=== PATIENT | male | born 1940 | race Caucasian/White ===

== ENCOUNTER 2016-12-13 11:57 | Inpatient (IN) | payer MEDICARE, OTHER ==
[~2016-12-13] VITALS: Ht 172.7 cm; Wt 86.2 kg
[2016-12-13] MEDS ORDERED: HYDR25TA86 PO (12:24)
[2016-12-13] MEDS ORDERED: MAG355OR18 PO (12:24)
[2016-12-13] MEDS ORDERED: VALP250C PO (12:24)
[2016-12-13] MEDS ORDERED: ZOLP5TAB2 PO (12:24)
[2016-12-13] MEDS ORDERED: DOXA2TAB PO (12:24)
[2016-12-13] MEDS ORDERED: METF1000 PO (12:24)
[2016-12-13] MEDS ORDERED: NA P133E RC (12:24)
[2016-12-13] MEDS ORDERED: LORA-259 PO (12:24)
[2016-12-13] MEDS ORDERED: ATOR40TA PO (12:24)
[2016-12-13] MEDS ORDERED: DONE10TA11 PO (12:24)
[2016-12-13] MEDS ORDERED: BENA20TA78 PO (12:24)
[2016-12-13] MEDS ORDERED: ASPI81TA31 PO (12:24)
[2016-12-13] MEDS ORDERED: MAGN400O6 PO (12:24)
[2016-12-13] MEDS ORDERED: MULT1CAP47 PO (12:24)
[2016-12-13] MEDS ORDERED: CRAN425C6 PO (12:24)
[2016-12-13] MEDS ORDERED: QUET50TA PO (12:25)
[2016-12-13] MEDS ORDERED: FINA5TAB3 PO (12:25)
[2016-12-13] MEDS ORDERED: QUET25TA PO ×2 (12:25→17:33)
[2016-12-13] MEDS ORDERED: ACET-2154 PO (12:25)
[2016-12-13 13:12] LABS: BASOPHILS % (AUTO) 0.6 % (0.0-2.0); HEMATOCRIT 36.5 % (40-50); HEMOGLOBIN 11.8 G/DL (14.0-18.0); LYMPHOCYTES # (AUTO) 1.6 K/UL (0.8-4.8); LYMPHOCYTES % (AUTO) 31.7 % (20.5-51.5); MEAN CORPUSCULAR HEMOGLOBIN 30.2 UUG (27.0-31.0); MEAN CORPUSCULAR HGB CONC 32 g/dL (32.0-37.0); MEAN CORPUSCULAR VOLUME 93.1 FL (82.0-92.0); MONOCYTES # (AUTO) 0.3 K/UL (0.1-1.30); MONOCYTES % (AUTO) 6.1 % (0.0-11.0); NEUTROPHILS % (AUTO) 60.6 % (38.5-71.5); PLATELET COUNT (AUTO) 93 K/UL (150-450); RED BLOOD CELL COUNT(AUTO) 3.92 MIL/UL (4.7-6.1); WHITE BLOOD COUNT (AUTO) 4.9 K/UL (4.0-11.2)
--- NOTE | 2016-12-13 13:13 | NUR ---
pt deneis any cp or sob at this time. no sign of distress. translation from romansh provided by hailee tripathi.
[2016-12-13 13:27] LABS: ALANINE AMINOTRANSFERASE 25 U/L (16-63); ALKALINE PHOSPHATASE 59 U/L (50-136); ASPARTATE AMINOTRANSFERASE 20 U/L (15-37); BILIRUBIN,DIRECT 0.1 mg/dL (0.0-0.2); BILIRUBIN,TOTAL 0.2 mg/dL (0.2-1.0); CARBON DIOXIDE 27 mmol/L (21-32); CHLORIDE 108 mmol/L (98-107); CREATININE 0.9 mg/dL (0.6-1.3); GLUCOSE 117 mg/dL (74-106); POTASSIUM 4.6 mmol/L (3.5-5.1); TOTAL PROTEIN, SERUM 6.9 g/dL (6.4-8.2); UREA NITROGEN, BLOOD 23 mg/dL (7-18)
[2016-12-13 14:06] LABS: *BILIRUBIN,URIN NEGATIVE (NEGATIVE); *BLOOD, URINE NEGATIVE (NEGATIVE); *CLARITY,URINE CLEAR (CLEAR); *COLOR,URINE YELLOW (YELLOW); *KETONES,URINE NEGATIVE (NEGATIVE); *PROTEIN,URINE NEGATIVE (NEGATIVE); *UROBILINOGEN,URINE 0.2 E.U./dl (NORMAL); LEUKOCYTE ESTERASE ,URINE NEGATIVE (NEGATIVE); NITRITE, URINE NEGATIVE (NEGATIVE); UGLUCOSE NEGATIVE (NEGATIVE)
[2016-12-13 14:16] LABS: RBC,URINE 0-3 /HPF (0-3); WBC,URINE 0-3 /HPF (0-3)
[2016-12-13 14:17] LABS: BACTERIA,URINE NONE SEEN /HPF (NONE SEEN); SQUAMOUS EPITHELIAL CELL,UR FEW /HPF (NONE SEEN)
[2016-12-13 14:39] LABS: BAND % (MANUAL) 3 % (0-10); EOSINOPHILS % (MANUAL) 1 % (0-8); LYMPHOCYTES % (MANUAL) 32 % (20-40); MONOCYTES % (MANUAL) 6 % (2-10); NEUTROPHILS % (MANUAL) 58 % (42-75)
--- NOTE | 2016-12-13 15:48 | NUR ---
NOTE WENT TO CHECK ON PATIENT IV PULLED WAS OUT. PRESSURE DRESSING PLACED NO BLEEDING NOTED. PATIENT IN BED NOT IN ANY DISTRESS.
--- NOTE | 2016-12-13 15:59 | NUR ---
Pt. admitted to TELE , under care of Dr. KABA Belongs List completed
--- NOTE | 2016-12-13 16:00 | NUR ---
RECEIVED PATIENT BY SHANIA TO ROOM 206 WITH DX OF FALL PLACED INTO BED FIXED AND MADE COMFORTABLE PATIENT IS ALERT TO SELF BUT IS CONFUSED ABLE TO OBEY SIMPLE COMMANDS.ORIENTED TO ROOM AND FACILITY PROTOCOL VIA AN LEADER TIER.MADE COMFORTABLE
--- NOTE | 2016-12-13 16:10 | NUR ---
CALLED DR KABA TO VERIFY ADMISSION ORDERS SPOKE CARLTON REYES MD NOT AVAILABLE WILL PAGE HIM.
[2016-12-13 16:18] VITALS: BP 157/88
--- NOTE | 2016-12-13 16:36 | NUR ---
CALLED [facility] SPOKE WITH THE ASSOCIATE PROGRAMMER ANALYST AND SHE CONFIRMED THAT PATIENT RECEIVED THE FLU SHOT 09/2015 BUT THE PNEUMONIA SOT HE RECEIVED 10/16/14.UNABLE TO VERIFY DATE OF PREVIOUS BOWEL MOVEMENT STATED THAT PATIENT IS INDEPENDENT.
--- NOTE | 2016-12-13 17:04 | NUR ---
DR KABA RETURNED CALL WITH NEW ORDERS AND NOTED.
[2016-12-13] MEDS ORDERED: DEXTROSE 50% 50 ML DISP.SYRIN IV PRN (17:15)
[2016-12-13] MEDS ORDERED: DIVA125C PO (17:17)
[2016-12-13] MEDS ORDERED: BENA10TA2 PO (17:21)
[2016-12-13] MEDS ORDERED: FLEET ENEMA 133 ML BOTTLE RC PRN (17:45)
[2016-12-13] MEDS ORDERED: hydrALAZINE HCL 25 MG TABLET PO PRN (17:45)
[2016-12-13] MEDS ORDERED: ACETAMINOPHEN 325 MG TABLET PO PRN (17:45)
[2016-12-13] MEDS ORDERED: MAG HYDROX/AL HYDROX/SIMETH 30 ML LIQUID UDC PO PRN (17:45)
[2016-12-13] MEDS ORDERED: LORAZEPAM 1 MG TABLET PO PRN (17:45)
[2016-12-13] MEDS ORDERED: MAGNESIUM HYDROXIDE 30 ML LIQUID UDC PO PRN (17:45)
[2016-12-13] MEDS ORDERED: Medication Not On Formulary EA (Metformin Hcl (Glucophage) 1,000 MG) PO SCH (18:00)
--- NOTE | 2016-12-13 18:00 | NUR ---
RECEIVED PATIENT IN BED, AWAKE, VERBALLY RESPONSIVE, LIBYAN SPEAKING, FAMILY ABLE TO INTERPRET FOR THE PATIENT, NO SOB NO CHEST PAIN, RHYTHM SINUS RHYTHM , NO COMPLAIN OF PAIN AT THIS TIME. CONT 1; 1 SITTER FOR SAFETY, CONT TO MONITOR.
--- NOTE | 2016-12-13 18:00 | NUR ---
ATTEMPTED BUT UNABLE TO OBTAIN FAMILY HISTORY AT THIS TIME.
[2016-12-13] MEDS: METFORMIN HCL 500 MG TABLET PO SCH (18:08)
[2016-12-13 20:00] VITALS: BP_SYST 141; BP_SYST 173; BP_SYST 177; BP_DIAS 71; BP_DIAS 83; BP_DIAS 91
[2016-12-13] MEDS: DONEPEZIL 10 MG TABLET PO SCH (20:20)
[2016-12-13] MEDS: DIVALPROEX SPRINKLE 125 MG CAP.SPRINK PO SCH (20:20)
[2016-12-13] MEDS: ATORVASTATIN 40 MG TABLET PO SCH (20:20)
[2016-12-13] MEDS: DOXAZOSIN 2 MG TABLET PO SCH (20:21)
[2016-12-13] MEDS: QUETIAPINE FUMARATE 25 MG TABLET PO SCH (20:29)
[2016-12-13] MEDS: BLOOD SUGAR DIAGNOSTIC 1 EACH STRIP VI SCH (20:35)
[2016-12-13 20:40] VITALS: BP 150/85
[2016-12-13] MEDS: INSULIN REGULAR, HUMAN 300 UNIT/3 ML VIAL SQ PRN (20:40)
--- NOTE | 2016-12-13 20:40 | NUR ---
PATIENT BP WAS HIGH EARLIER, BUT NO ASYMPTOMATIC, NO COMPLAIN OF HEADACHE, NO DIZZINESS, NO NAUSEA, RECHECK BP, BP WENT DOWN AT THIS TIME, CONT TO MONITOR.
[2016-12-13] MEDS ORDERED: BLOOD SUGAR DIAGNOSTIC 1 EACH STRIP VI SCH (21:00)
[2016-12-13 21:31] VITALS: BP 173/91
[2016-12-14] VITALS (7 sets, daily range): BP systolic 113–150; BP diastolic 69–91
--- NOTE | 2016-12-14 05:16 | NUR ---
PATIENT SLEPT MOST OF THE NIGHT, NO SOB NO CHEST PAIN, RHYTHM IS SINUS RHYTHM, WITH EPISODES OF ANXIETY, MEDICATED FOR ANXIETY WITH EFFECTIVE RESULTS, NO S/S OF HYPO/HYPERGLYCEMIA NOTED, CONT 1;1 SITTER FOR SAFETY, CALL LIGHT WITHIN REACH.
[2016-12-14] MEDS: BLOOD SUGAR DIAGNOSTIC 1 EACH STRIP VI SCH ×4 (05:49→20:06)
[2016-12-14 06:48] LABS: THYROID STIMULATING HORMONE 4.447 mIU/mL (0.358-3.740)
[2016-12-14 06:58] LABS: ALANINE AMINOTRANSFERASE 23 U/L (16-63); ALKALINE PHOSPHATASE 54 U/L (50-136); ASPARTATE AMINOTRANSFERASE 17 U/L (15-37); BILIRUBIN,TOTAL 0.4 mg/dL (0.2-1.0); CARBON DIOXIDE 28 mmol/L (21-32); CHLORIDE 108 mmol/L (98-107); CHOLESTEROL 127 mg/dL (<200); CREATININE 0.9 mg/dL (0.6-1.3); GLUCOSE 127 mg/dL (74-106); HDL CHOLESTEROL 54 mg/dL (40-60); POTASSIUM 4.1 mmol/L (3.5-5.1); TOTAL PROTEIN, SERUM 6.4 g/dL (6.4-8.2); TRIGLYCERIDES 54 MG/DL (30-150); UREA NITROGEN, BLOOD 22 mg/dL (7-18)
[2016-12-14 07:05] LABS: BASOPHILS % (AUTO) 0.5 % (0.0-2.0); EOSINOPHILS % (AUTO) 0.9 % (0.0-7.0); HEMATOCRIT 34.6 % (36.7-47.1); HEMOGLOBIN 11.9 g/dL (12.5-16.3); LYMPHOCYTES # (AUTO) 1.8 K/uL (20.0-40.0); MEAN CORPUSCULAR HEMOGLOBIN 31.3 uug (23.8-33.4); MEAN CORPUSCULAR HGB CONC 34 g/dL (32.5-36.3); MEAN CORPUSCULAR VOLUME 91.3 fL (73.0-96.2); MONOCYTES # (AUTO) 0.4 K/uL (2.0-10.0); MONOCYTES % (AUTO) 7.5 % (0.0-11.0); NEUTROPHILS # (AUTO) 2.9 K/uL (1.8-8.9); NEUTROPHILS % (AUTO) 56.1 % (38.5-71.5); PLATELET COUNT (AUTO) 97 K/uL (152-348); RED BLOOD CELL COUNT(AUTO) 3.79 MIL/uL (4.06-5.63); WHITE BLOOD COUNT (AUTO) 5.1 K/uL (3.6-10.2)
--- NOTE | 2016-12-14 07:30 | NUR ---
RECEIVED PATIENT IN BED ASLLEP BUT OPENS EYES WHEN NAME IS CALLED BUT WILL PROMPTLY FALL ASLEEP S/P ATIVAN GIVEN AT 5AM THIS MORNING FOR AGITATION/RESTLESSNESS.REMAIN ON ONE ON ONE SITTER FOR SAFETY MADE COMFORTABLE AND WILL CONTINUE TO OBSERVE.
[2016-12-14] MEDS: ASPIRIN 81 MG TAB.CHEW PO SCH (08:15)
[2016-12-14] MEDS: BENAZEPRIL HCL 10 MG TABLET PO SCH (08:15)
[2016-12-14] MEDS: FINASTERIDE 5 MG TABLET PO SCH (08:15)
[2016-12-14] MEDS: METFORMIN HCL 500 MG TABLET PO SCH ×2 (08:16→17:07)
[2016-12-14] MEDS: DIVALPROEX SPRINKLE 125 MG CAP.SPRINK PO SCH ×4 (08:16→20:03)
[2016-12-14] MEDS: MULTIVIT, IRON, MIN NO. 8, FA TABLET PO SCH (08:16)
[2016-12-14] MEDS: QUETIAPINE FUMARATE 25 MG TABLET PO SCH ×4 (08:16→20:04)
[2016-12-14] MEDS ORDERED: MULTIVITAMINS W MINERALS PO SCH (09:00)
--- NOTE | 2016-12-14 09:30 | NUR ---
DR MACIAS HERE TO SEE PATIENT WITH NEW ORDERS AND NOTED.
[2016-12-14] MEDS: IV 1/2NS 1000 ML 1,000 ML IV PRN (11:20)
[2016-12-14] MEDS: INSULIN REGULAR, HUMAN 300 UNIT/3 ML VIAL SQ PRN ×3 (11:41→20:21)
[2016-12-14] MEDS: LORAZEPAM 1 MG TABLET PO PRN ×2 (14:45→21:58)
--- NOTE | 2016-12-14 14:48 | NUR ---
PATIENT IS AGITATED AND RESTLESS AND PULLING ON THE IV TUBBING GETTING AGGRESSIVE WITH THE SITTER UNABLE TO REDIRECT AND HIS ATIVAN IS ORDERED FOR Q12H AND NOT DUE TO BE GIVEN CALLED DR MACIAS AND NOTIFIED HIM WITH NEW ORDER TO CHANGE FREQUENCY TO Q6H AND NOTED.
--- NOTE | 2016-12-14 17:45 | NUR ---
ALERT FAMILY IS AT THE BEDSIDE MORE CALMER AT THIS TIME AND WILL CONTINUE TO OBSERVE.
--- NOTE | 2016-12-14 19:20 | NUR ---
SPOKE WITH PATIENTS WHO IS AT THE BEDSIDE RE FLU SHOT AND SHE STATED THAT PATIENT RECEIVED FLU SHOT FIRST WEEK OF NOVEMBER AND DOCUMENTED.
[2016-12-14] MEDS: ATORVASTATIN 40 MG TABLET PO SCH (20:04)
[2016-12-14] MEDS: DONEPEZIL 10 MG TABLET PO SCH (20:04)
[2016-12-14] MEDS: DOXAZOSIN 2 MG TABLET PO SCH (20:05)
--- NOTE | 2016-12-14 22:00 | NUR ---
PT AGITATED, PULLING IV, UNABLE TO REDIRECT. ADMINISTERED ATIVAN ORDERED. 1:1 SITTER PROVIDED FOR SAFETY. WILL CONTINUE TO MONITOR.
[2016-12-14] MEDS: ZOLPIDEM 5 MG TABLET PO PRN (23:01)
[2016-12-15 06:07] VITALS: BP_SYST 118; BP_SYST 130; BP_DIAS 71; BP_DIAS 80
--- NOTE | 2016-12-15 06:30 | NUR ---
PT SLEPT WELL, IN NO ACUTE DISTRESS. PT IS ON TELE SINUS RHYTHM. ACCUCHECKS ORDERED, NO S/S HYPO/HYPERGLYCEMIA NOTED. 1:1 SITTER PROVIDED FOR SAFETY, WILL CONTINUE TO MONITOR. Addendum: 12/15/16 at 0646 by BETHEL MENDIOLA RN ADD: PT IS CALM, NO S/S OF AGITATION.
[2016-12-15] MEDS: BLOOD SUGAR DIAGNOSTIC 1 EACH STRIP VI SCH ×4 (06:37→20:33)
--- NOTE | 2016-12-15 07:20 | NUR ---
Received report from night club manager nurse, patient in bed awake, no evidence of distress noted at this time. bed in low position, side rails up x2.
--- NOTE | 2016-12-15 08:10 | NUR ---
Patients anxiety and agitation is increasing, preparation to administer ativan to patient to help relive agitation.
[2016-12-15] MEDS: MULTIVIT, IRON, MIN NO. 8, FA TABLET PO SCH (08:20)
[2016-12-15] MEDS: FINASTERIDE 5 MG TABLET PO SCH (08:20)
[2016-12-15] MEDS: DIVALPROEX SPRINKLE 125 MG CAP.SPRINK PO SCH ×4 (08:20→20:23)
[2016-12-15] MEDS: METFORMIN HCL 500 MG TABLET PO SCH ×2 (08:20→17:00)
[2016-12-15] MEDS: ASPIRIN 81 MG TAB.CHEW PO SCH (08:21)
[2016-12-15] MEDS: QUETIAPINE FUMARATE 25 MG TABLET PO SCH ×4 (08:21→20:22)
[2016-12-15] MEDS: BENAZEPRIL HCL 10 MG TABLET PO SCH (08:25)
[2016-12-15] MEDS: LORAZEPAM 1 MG TABLET PO PRN ×2 (08:56→20:23)
[2016-12-15] MEDS: IV 1/2NS 1000 ML 1,000 ML IV PRN (11:04)
[2016-12-15 11:30] VITALS: BP 125/79
[2016-12-15 12:00] VITALS: BP 125/79
[2016-12-15] MEDS: INSULIN REGULAR, HUMAN 300 UNIT/3 ML VIAL SQ PRN ×2 (13:30→21:45)
[2016-12-15 15:44] VITALS: BP 114/75
--- NOTE | 2016-12-15 17:00 | NUR ---
Patient is attempting to leave the facility and is confused, mentioned that he needs to get on the bus and go home, work is over for the day. Patient is being combative when attempted to help him back to bed. Scratching and hitting staff. contacted Dr. Salamanca for orders as patient is refusing oral ativan.
--- NOTE | 2016-12-15 17:36 | NUR ---
Called Dr. Salamanca again as he didn't return call.
[2016-12-15] MEDS ORDERED: HALOPERIDOL LACTATE 5 MG/1 ML VIAL IM PRN (18:00)
--- NOTE | 2016-12-15 18:00 | NUR ---
Received orders from Dr. delgado for haldol IM injection.
[2016-12-15] MEDS: DONEPEZIL 10 MG TABLET PO SCH (20:23)
[2016-12-15] MEDS: ATORVASTATIN 40 MG TABLET PO SCH (20:23)
--- NOTE | 2016-12-15 20:30 | NUR ---
PT IS AGITATED, FREQUENTLY GOES OUT OF THE ROOM, UNCOOPERATIVE, NOT REDIRECTABLE. ADMINISTERED ATIVAN. 1:1 SITTER PROVIDED FOR SAFETY. WILL CONTINUE TO MONITOR.
[2016-12-15] MEDS: DOXAZOSIN 2 MG TABLET PO SCH (20:32)
[2016-12-15] MEDS: ZOLPIDEM 5 MG TABLET PO PRN (22:31)
[2016-12-16] MEDS: IV 1/2NS 1000 ML 1,000 ML IV PRN (03:06)
--- NOTE | 2016-12-16 06:30 | NUR ---
SLEPT WELL, IN NO ACUTE DISTRESS. PT IS ON TELE - SR WITH OCCASIONAL PVCS AND 3 SECS OF ATRIAL TACH. 1:1 SITTER PROVIDED FOR SAFETY, WILL CONTINUE TO MONITOR.
[2016-12-16] MEDS: BLOOD SUGAR DIAGNOSTIC 1 EACH STRIP VI SCH ×3 (06:41→16:30)
--- NOTE | 2016-12-16 07:10 | NUR ---
RECEIVED REPORT FROM STARCH DUMPER NURSE, PATIENT IN BED ASLEEP, NO EVIDENCE OF DISTRESS NOTED AT THIS TIME. BED IN LOW POSITION, SIDE RAILS UP X2, SITTER AT BEDSIDE.
[2016-12-16] MEDS ORDERED: DIVA125C PO (08:29)
[2016-12-16] MEDS ORDERED: LORA-259 PO (08:29)
--- NOTE | 2016-12-16 08:30 | NUR ---
PATIENTS BEHAVIOR HAS ESCALATED AND HE IS ATTEMPTING TO LEAVE THE FACILITY AND TRYING TO TAKE OUT HIS IV LINES. PREPARATION TO GIVE ATIVAN
[2016-12-16] MEDS: BENAZEPRIL HCL 10 MG TABLET PO SCH (08:47)
[2016-12-16] MEDS: ASPIRIN 81 MG TAB.CHEW PO SCH (08:47)
[2016-12-16] MEDS: LORAZEPAM 1 MG TABLET PO PRN ×2 (08:47→14:48)
[2016-12-16] MEDS: FINASTERIDE 5 MG TABLET PO SCH (08:48)
[2016-12-16] MEDS: MULTIVIT, IRON, MIN NO. 8, FA TABLET PO SCH (08:48)
[2016-12-16] MEDS: QUETIAPINE FUMARATE 25 MG TABLET PO SCH ×3 (08:48→16:35)
[2016-12-16] MEDS: METFORMIN HCL 500 MG TABLET PO SCH (08:48)
[2016-12-16] MEDS ORDERED: DIVALPROEX SPRINKLE 125 MG CAP.SPRINK PO SCH (09:00)
[2016-12-16] MEDS: VALPROIC ACID 250 MG/5 ML LIQUID UDC PO SCH ×3 (09:43→16:35)
[2016-12-16 11:00] VITALS: BP 107/77
[2016-12-16] MEDS: INSULIN REGULAR, HUMAN 300 UNIT/3 ML VIAL SQ PRN (12:29)
[2016-12-16 14:00] VITALS: BP 123/65
--- NOTE | 2016-12-16 14:45 | NUR ---
PATIENT HAS AGAIN STARTED HAVING SEVERE AGITATION AND ATTEMPTING TO LEAVE THE HOSPITAL TO GO HOME, HE HAS BEEN COMBATIVE AND ATTEMPTING TO STRIKE AT STAFF.
--- NOTE | 2016-12-16 17:50 | NUR ---
PATIENT HAS BEEN PICKED UP BY TRANSPORT COMPANY, IV LINE REMOVED, NO EVIDENCE OF DISTRESS NOTED AT THIS TIME. PATIENT HAS HAD HIS MEAL, AND TOOK HIS 5PM MEDICATIONS. ALL EDUCATION MATERIAL SENT IN A PACKAGE TO PATIENTS FAMILY WITH THE TRANSPORT AGENCY TO BE DELIVERED TO THE STAFF AT FACILITY.
== END 2016-12-16 17:55 | DRG 641 ==
LOC: ER 11:57 → MED 15:33 → TELE 15:40 → MED 12-16 10:58
PROVIDERS: ADMIT Internal Medicine; ATTEND Internal Medicine
DX: E86.9 Volume depletion, unspecified (principal); F20.9 Schizophrenia, unspecified; I71.2 Thoracic aortic aneurysm, without rupture; I95.2 Hypotension due to drugs; E11.9 Type 2 diabetes mellitus without complications; W19.XXXA Unspecified fall, initial encounter; R55 Syncope and collapse; I10 Essential (primary) hypertension; Z86.73 Personal history of transient ischemic attack (TIA), and cerebral infarction without residual deficits; Z87.891 Personal history of nicotine dependence; E78.5 Hyperlipidemia, unspecified; F03.90 Unspecified dementia, unspecified severity, without behavioral disturbance, psychotic disturbance, mood disturbance, and anxiety; G40.909 Epilepsy, unspecified, not intractable, without status epilepticus; Z91.81 History of falling; F99 Mental disorder, not otherwise specified; T46.4X5A Adverse effect of angiotensin-converting-enzyme inhibitors, initial encounter; Y92.129 Unspecified place in nursing home as the place of occurrence of the external cause; Y93.9 Activity, unspecified
CPT/HCPCS: 36415; 70030-TC; 70450; 71010; 72125; 80164; 84443; 85025; 85730; 93005; 93307; 93880; 97116; 97530; A4663; J1630; J1815; J3490; J7030

== ENCOUNTER 2017-08-08 18:29 | Inpatient (IN) | payer MEDICARE, OTHER ==
[~2017-08-08] VITALS: Ht 172.7 cm; Wt 93.4 kg
[~2017-08-08 18:29] MED LIST: ACET-2154 PO; ASPI81TA31 PO; ATOR40TA PO; CRAN425C6 PO; DIVA125C PO; DONE10TA11 PO; DOXA2TAB PO; FINA5TAB3 PO; HYDR25TA86 PO; LORA-259 PO; MAG355OR18 PO; MAGN400O6 PO; METF1000 PO; MULT1CAP47 PO; NA P133E RC; QUET25TA PO; ZOLP5TAB2 PO
[2017-08-08 19:02] LABS: BASOPHILS % (AUTO) 0.6 % (0.0-2.0); EOSINOPHILS % (AUTO) 0.6 % (0.0-7.0); HEMATOCRIT 33.1 % (36.7-47.1); HEMOGLOBIN 11.4 g/dL (12.5-16.3); LYMPHOCYTES # (AUTO) 1.3 K/uL (20.0-40.0); LYMPHOCYTES % (AUTO) 30.5 % (20.5-51.5); MEAN CORPUSCULAR HEMOGLOBIN 31.7 uug (23.8-33.4); MEAN CORPUSCULAR HGB CONC 34 g/dL (32.5-36.3); MEAN CORPUSCULAR VOLUME 92.1 fL (73.0-96.2); MONOCYTES # (AUTO) 0.3 K/uL (2.0-10.0); MONOCYTES % (AUTO) 6.3 % (0.0-11.0); NEUTROPHILS # (AUTO) 2.7 K/uL (1.8-8.9); PLATELET COUNT (AUTO) 85 K/uL (152-348); WHITE BLOOD COUNT (AUTO) 4.4 K/uL (3.6-10.2)
[2017-08-08 19:13] LABS: CARBON DIOXIDE 28 mmol/L (21-32); CHLORIDE 109 mmol/L (98-107); CREATININE 1.4 mg/dL (0.6-1.3); GLUCOSE 153 mg/dL (74-106); POTASSIUM 4.7 mmol/L (3.5-5.1); UREA NITROGEN, BLOOD 28 mg/dL (7-18)
[2017-08-08 19:17] LABS: ETHANOL < 3 MG/DL (0-0)
[2017-08-08 19:18] LABS: ALANINE AMINOTRANSFERASE 21 U/L (16-63); ALKALINE PHOSPHATASE 54 U/L (50-136); ASPARTATE AMINOTRANSFERASE 12 U/L (15-37); BILIRUBIN,DIRECT 0.1 mg/dL (0.0-0.2); BILIRUBIN,TOTAL 0.2 mg/dL (0.2-1.0); TOTAL PROTEIN, SERUM 6.6 g/dL (6.4-8.2)
[2017-08-08 19:26] LABS: THYROID STIMULATING HORMONE 3.063 mIU/mL (0.358-3.740)
--- NOTE | 2017-08-08 20:35 | NUR ---
GAVE REPORT TO GWYN AARON
[2017-08-08 20:45] VITALS: BP 134/75
--- NOTE | 2017-08-08 20:45 | NUR ---
Pt. admitted to MHU , under care of Dr. FALCON/SESAR Hopper List completed. MRSA done
--- NOTE | 2017-08-08 21:00 | NUR ---
Admission Note: 76 y.o. (serbian speaking) male placed on 5150 for DTO and GD. Jose Drake RN used as splitter machine. Pt brought to [facility] from [facility] and medically cleared in ER. Pt brought to MHU from ER via [facility] accompanied by ER staff. VS stable on admission. According to the hold, Pt has been striking out at staff as they attempt to redirect his aggressive and exit-seeking behavior. Pt last hospitalized at [facility] in November 2016 for a similar episode. Pt calms only when family is present. RN concurs with Hold. Pt given Patient Rights Handbook and oriented to the unit and his room. Unit rules and expectations explained. A+Ox1 to self only. Pt disoriented, confused, disorganized and forgetful. Pt slow to respond and has blunted/restricted affect. Pt gives irrelevant and non-sensical answers to questions. Pt became aggressive and agitated when asked to remove his necklace to put into the valuables locker for safety reasons. Security was called and had to intervene to remove the necklace. Pt eventually calmed. Dr Carvajal and Dr Salamanca notified of admission, orders received, meds reconciled. VS stable, denies pain, no acute physical distress.
[2017-08-08] MEDS ORDERED: MAGNESIUM HYDROXIDE 30 ML LIQUID UDC PO PRN (21:15)
[2017-08-08] MEDS ORDERED: MAG HYDROX/AL HYDROX/SIMETH 30 ML LIQUID UDC PO PRN (21:15)
[2017-08-09] MEDS ORDERED: FLEET ENEMA 133 ML BOTTLE RC PRN (07:15)
[2017-08-09] MEDS ORDERED: hydrALAZINE HCL 25 MG TABLET PO PRN (07:15)
[2017-08-09 07:30] VITALS: BP 157/86
[2017-08-09] MEDS ORDERED: Medication Not On Formulary EA (Cranberry Extract (Cranberry) 425 MG) PO SCH (09:00)
[2017-08-09] MEDS: METFORMIN HCL 500 MG TABLET PO SCH ×2 (09:55→18:00)
[2017-08-09] MEDS: MULTIVIT, IRON, MIN NO. 8, FA TABLET PO SCH (09:55)
[2017-08-09] MEDS: FINASTERIDE 5 MG TABLET PO SCH (09:55)
[2017-08-09] MEDS: LORAZEPAM 1 MG TABLET PO PRN ×2 (10:08→16:54)
--- NOTE | 2017-08-09 11:38 | NUR ---
Firearms Report: Creative Developer completed and submitted [employer] Firearms Report on 08/09/17 for 5150 Danger to Others and Gravely Disabled certification
[2017-08-09] MEDS: ASPIRIN 81 MG TAB.CHEW PO SCH (12:56)
--- NOTE | 2017-08-09 15:48 | NUR ---
GPS: Nursing Notes: Thought Disorder: Patient is awake and responding to his name, impaired judgment, slightly unsteady gait, on fall precautions, refusing to use a fww, AWOL risk, constantly trying to leave unit, setting off - fire alarm door by trying to leave unit, disoriented, A/Ox1, "I want to go home... My is waiting for me..", redirected and reoriented during shift, but continue to be forgetful, confused, believes that he needs to go home, unkempt appearance, labile, unpredictable behavior at times, unable to formulate a plan for self care, continue with treatment plan.
[2017-08-09 16:31] VITALS: BP 158/91
[2017-08-09] MEDS: QUETIAPINE FUMARATE 25 MG TABLET PO SCH ×2 (18:23→20:03)
[2017-08-09 19:54] VITALS: BP 106/67
[2017-08-09] MEDS: ATORVASTATIN 40 MG TABLET PO SCH (20:03)
[2017-08-09] MEDS: DIVALPROEX 250 MG TABLET.DR PO SCH (20:03)
[2017-08-09] MEDS: DOXAZOSIN 2 MG TABLET PO SCH (20:08)
[2017-08-09] MEDS: TEMAZEPAM 7.5 MG CAPSULE PO PRN (22:03)
[2017-08-10] MEDS: LORAZEPAM 1 MG TABLET PO PRN ×3 (02:36→18:27)
--- NOTE | 2017-08-10 02:37 | NUR ---
GPS: Pt.is awake at this time. Anxious,confused and disoriented. Re-directed and re-assured frequently. Denies the need to use the toilet at this time. Ativan 1mg given PO.Will monitor effectiveness. Fall precautions observed. Quiet environment provided to facilitate sleep.
[2017-08-10 04:54] LABS: *CREATININE,URINE 58.6 mg/dL (30-125)
[2017-08-10 08:00] VITALS: BP 162/90
[2017-08-10 08:09] LABS: BASOPHILS % (AUTO) 0.5 % (0.0-2.0); EOSINOPHILS # (AUTO) 0.1 K/uL (0.0-0.7); EOSINOPHILS % (AUTO) 1.6 % (0.0-7.0); HEMATOCRIT 36.3 % (36.7-47.1); HEMOGLOBIN 12.4 g/dL (12.5-16.3); LYMPHOCYTES # (AUTO) 1.5 K/uL (20.0-40.0); LYMPHOCYTES % (AUTO) 29.5 % (20.5-51.5); MEAN CORPUSCULAR HEMOGLOBIN 31.2 uug (23.8-33.4); MEAN CORPUSCULAR HGB CONC 34 g/dL (32.5-36.3); MEAN CORPUSCULAR VOLUME 91.4 fL (73.0-96.2); MONOCYTES # (AUTO) 0.4 K/uL (2.0-10.0); MONOCYTES % (AUTO) 8.3 % (0.0-11.0); NEUTROPHILS # (AUTO) 3.1 K/uL (1.8-8.9); NEUTROPHILS % (AUTO) 60.1 % (38.5-71.5); PLATELET COUNT (AUTO) 93 K/uL (152-348); RED BLOOD CELL COUNT(AUTO) 3.97 MIL/uL (4.06-5.63); WHITE BLOOD COUNT (AUTO) 5.2 K/uL (3.6-10.2)
[2017-08-10 08:27] LABS: ALANINE AMINOTRANSFERASE 17 U/L (16-63); ALKALINE PHOSPHATASE 59 U/L (50-136); ASPARTATE AMINOTRANSFERASE 12 U/L (15-37); BILIRUBIN,TOTAL 0.5 mg/dL (0.2-1.0); CARBON DIOXIDE 29 mmol/L (21-32); CHLORIDE 107 mmol/L (98-107); CREATINE KINASE, TOTAL 77 U/L (39-308); CREATININE 0.9 mg/dL (0.6-1.3); GLUCOSE 138 mg/dL (74-106); LACTATE DEHYDROGENASE 165 U/L (85-227); MAGNESIUM 1.7 mg/dL (1.8-2.4); PHOSPHOROUS 2.5 mg/dL (2.5-4.9); POTASSIUM 3.9 mmol/L (3.5-5.1); TOTAL PROTEIN, SERUM 6.9 g/dL (6.4-8.2); UREA NITROGEN, BLOOD 22 mg/dL (7-18)
[2017-08-10 08:33] LABS: IRON, SERUM 63 ug/dL (50-175)
[2017-08-10 08:38] LABS: THYROID STIMULATING HORMONE 4.393 mIU/mL (0.358-3.740)
[2017-08-10] MEDS: ASPIRIN 81 MG TAB.CHEW PO SCH (08:38)
[2017-08-10] MEDS: DIVALPROEX 250 MG TABLET.DR PO SCH ×4 (08:38→20:35)
[2017-08-10] MEDS: MULTIVIT, IRON, MIN NO. 8, FA TABLET PO SCH (08:38)
[2017-08-10] MEDS: FINASTERIDE 5 MG TABLET PO SCH (08:38)
[2017-08-10] MEDS: METFORMIN HCL 500 MG TABLET PO SCH ×2 (08:38→17:06)
[2017-08-10] MEDS: QUETIAPINE FUMARATE 25 MG TABLET PO SCH ×4 (08:38→20:35)
[2017-08-10 09:12] LABS: FERRITIN 63 ng/mL (26-388); URIC ACID 7.2 mg/dL (3.5-7.2)
[2017-08-10] MEDS: ACETAMINOPHEN 325 MG TABLET PO PRN (12:12)
[2017-08-10] MEDS ORDERED: MAGNESIUM OXIDE 400 MG TABLET PO ONE (13:15)
[2017-08-10 16:00] VITALS: BP 147/81
[2017-08-10] MEDS ORDERED: Z GUARD REMEDY PASTE 57 GM TUBE TOP PRN (16:45)
[2017-08-10 18:27] VITALS: BP 139/69
[2017-08-10 20:21] VITALS: BP 147/70
[2017-08-10] MEDS: DOXAZOSIN 2 MG TABLET PO SCH (20:35)
[2017-08-10] MEDS: ATORVASTATIN 40 MG TABLET PO SCH (20:35)
[2017-08-10] MEDS: Z GUARD REMEDY PASTE 57 GM TUBE TOP SCH (20:36)
[2017-08-11] MEDS: LORAZEPAM 1 MG TABLET PO PRN (03:42)
--- NOTE | 2017-08-11 03:42 | NUR ---
GPS: Pt.is awake,anxious and restless at this time. Unable to be re-directed by staff. Pt.keeps trying to get up from bed. Denies the need to go to the toilet when asked. Diaper is dry at this time. Ativan 1mg given PO with very little water as possible(needs to be NPO). Will monitor effectiveness. Denied pain when asked. Sitter at bedside.
[2017-08-11] MEDS: Z GUARD REMEDY PASTE 57 GM TUBE TOP PRN (03:48)
[2017-08-11 07:07] LABS: HEPATITIS B SURFACE AG Negative (Negative)
[2017-08-11 07:30] VITALS: BP 136/73
[2017-08-11] MEDS: ASPIRIN 81 MG TAB.CHEW PO SCH (08:41)
[2017-08-11] MEDS: DIVALPROEX 250 MG TABLET.DR PO SCH ×2 (08:41→13:28)
[2017-08-11] MEDS: MULTIVIT, IRON, MIN NO. 8, FA TABLET PO SCH (08:41)
[2017-08-11] MEDS: QUETIAPINE FUMARATE 25 MG TABLET PO SCH ×4 (08:42→20:28)
[2017-08-11] MEDS: METFORMIN HCL 500 MG TABLET PO SCH ×2 (08:42→17:29)
[2017-08-11] MEDS: FINASTERIDE 5 MG TABLET PO SCH (08:42)
[2017-08-11] MEDS: Z GUARD REMEDY PASTE 57 GM TUBE TOP SCH ×2 (09:04→20:30)
[2017-08-11 11:06] LABS: A/G RATIO 1.3 (0.7-1.7); ALBUMIN 3.6 g/dL (2.9-4.4); ALPHA-1-GLOBULIN 0.2 g/dL (0.0-0.4); ALPHA-2-GLOBULIN 0.6 g/dL (0.4-1.0); BETA GLOBULIN 0.9 g/dL (0.7-1.3); GLOBULIN, TOTAL 2.7 g/dL (2.2-3.9); M-SPIKE Not Observed g/dL (Not Observed)
[2017-08-11] MEDS ORDERED: DIVALPROEX SPRINKLE 125 MG CAP.SPRINK PO SCH (13:00)
[2017-08-11 16:28] VITALS: BP 141/71
[2017-08-11] MEDS: DIVALPROEX SPRINKLE 125 MG CAP.SPRINK PO SCH ×2 (17:23→20:28)
[2017-08-11] MEDS: ATORVASTATIN 40 MG TABLET PO SCH (20:27)
[2017-08-11] MEDS: DOXAZOSIN 2 MG TABLET PO SCH (20:28)
[2017-08-11 21:28] VITALS: BP 124/72
--- NOTE | 2017-08-12 06:54 | NUR ---
GPS: REMAIN CALM AND COOPERATIVE WITH MEDICATION AND CARE. SHOWERED THIS MORNING. ASSISTED WITH ADL'S DUE TO PATIENT IS INCONTINENT. TURN Q 2 HRS FOR SKIN SAFETY. REMAIN ON 1:1 SITTER @ BEDSIDE FOR SAFETY. SLEPT 7:15 HRS THROUGH THE NIGHT. CONTINUE PLAN OF CARE.
[2017-08-12 07:30] VITALS: BP 115/68
--- NOTE | 2017-08-12 07:46 | NUR ---
REPORT RECEIVED FROM SAM CHRISTOPHER.
[2017-08-12] MEDS: METFORMIN HCL 500 MG TABLET PO SCH ×2 (08:16→17:07)
[2017-08-12] MEDS: FINASTERIDE 5 MG TABLET PO SCH (08:16)
[2017-08-12] MEDS: DIVALPROEX SPRINKLE 125 MG CAP.SPRINK PO SCH ×5 (08:17→23:58)
[2017-08-12] MEDS: QUETIAPINE FUMARATE 25 MG TABLET PO SCH ×5 (08:17→23:58)
[2017-08-12] MEDS: ASPIRIN 81 MG TAB.CHEW PO SCH (08:17)
[2017-08-12] MEDS: MULTIVIT, IRON, MIN NO. 8, FA TABLET PO SCH (08:17)
[2017-08-12] MEDS: Z GUARD REMEDY PASTE 57 GM TUBE TOP SCH ×2 (08:18→22:26)
--- NOTE | 2017-08-12 08:32 | NUR ---
PATIENT IN ROOM WITH SITTER. PATIENT HAS BEEN IRRITATED THIS MORNING. GIVEN MORNING MEDICATION CRUSHED. PATIENT COMPLIANT WITH MEDS. ASKED PATIENT IF HE WANTED TO WATCH TV IN THE DAY ROOM; HE SAID YES. PATIENT IS ALBANIAN SPEAKING ONLY ASKED THERAPIST IF ACOMODATION CAN BE POSSIBLE.
--- NOTE | 2017-08-12 12:20 | NUR ---
PATIENT HAS VISITORS. PATIENT SLEEPING AT THIS TIME. SAVE LUNCH TRAY FOR THE PATIENT
[2017-08-12] MEDS: LORAZEPAM 1 MG TABLET PO PRN (14:15)
[2017-08-12] MEDS: ACETAMINOPHEN 325 MG TABLET PO PRN (14:15)
--- NOTE | 2017-08-12 14:27 | NUR ---
PATIENT WAS BECOMING COMBATIVE. PATIENT WANTING TO GET OUT OF BED, FORGETS, DOES NOT FOLLOW, HIGH RISK FOR FALL. SAT PATIENT UP TO GERIATRIC CHAIR. TAKEN PATIENT TO DAY ROOM TO WATCH TV. PATIENT GIVEN PRN ATIVAN.
[2017-08-12 15:47] VITALS: BP 102/54
--- NOTE | 2017-08-12 16:28 | NUR ---
PATIENT HAS INCREASED CONFUSION. TRYING TO GET OUT OF BED. BEING COMBATIVE AND THEN CLOSING HIS EYES A DOZING OFF TO SLEEP. PATIENT VERY WEAK- HIGH RISK OF FALL
[2017-08-12 20:36] VITALS: BP 130/58
[2017-08-12] MEDS: ATORVASTATIN 40 MG TABLET PO SCH (21:00)
[2017-08-12] MEDS: DOXAZOSIN 2 MG TABLET PO SCH (21:00)
--- NOTE | 2017-08-12 22:25 | NUR ---
GPS: Pt.still sound asleep in bed at this time since shift change. Unable to give bedtime meds.at this time. VSS. In no acute resp.distress noted. Sitter at bedside for safety. Repositioned Q2 hrs and prn.
--- NOTE | 2017-08-13 | NUR ---
GPS: Pt.now awake. Psych meds.administered at this time. Encouraged to reposition self prn. No c/o pain verbalized. Diaper dry at this time.
--- NOTE | 2017-08-13 02:05 | NUR ---
GPS: Assisted pt.to the toilet at this time for elimination purposes. Noted pt.with a skin breakdown around sacral/coccyx area. Pt.is starting to get agitated at this time and rushing to get back to bed and go back to sleep. Staff unable to fully assess skin at this time. Pt.uncooperative at this time. Refused to have skin assessed.Confused,disoriented with poor insight. Will further assess skin in the morning. Pt.kept on his sides at this time.
--- NOTE | 2017-08-13 06:00 | NUR ---
GPS: Upon further assessment at this time,pt.with excoriation on sacral area. No s/s of infection noted. Observed pt.to be scratching area vigorously. Denied feeling itchy when asked. Pt.is confused,disoriented . Assisted in repositioning self prn. Wound consult orders received. Endorsed.
[2017-08-13 07:29] LABS: BASOPHILS % (AUTO) 0.2 % (0.0-2.0); EOSINOPHILS % (AUTO) 0.6 % (0.0-7.0); HEMATOCRIT 34.2 % (36.7-47.1); HEMOGLOBIN 11.8 g/dL (12.5-16.3); LYMPHOCYTES # (AUTO) 1.1 K/uL (20.0-40.0); LYMPHOCYTES % (AUTO) 13.8 % (20.5-51.5); MEAN CORPUSCULAR HEMOGLOBIN 31.6 uug (23.8-33.4); MEAN CORPUSCULAR HGB CONC 35 g/dL (32.5-36.3); MEAN CORPUSCULAR VOLUME 91.5 fL (73.0-96.2); MONOCYTES # (AUTO) 0.7 K/uL (2.0-10.0); MONOCYTES % (AUTO) 8.5 % (0.0-11.0); NEUTROPHILS # (AUTO) 6.2 K/uL (1.8-8.9); NEUTROPHILS % (AUTO) 76.9 % (38.5-71.5); PLATELET COUNT (AUTO) 103 K/uL (152-348); RED BLOOD CELL COUNT(AUTO) 3.73 MIL/uL (4.06-5.63)
[2017-08-13 07:30] VITALS: BP 124/63
[2017-08-13] MEDS: METFORMIN HCL 500 MG TABLET PO SCH ×2 (08:30→17:48)
[2017-08-13] MEDS: QUETIAPINE FUMARATE 25 MG TABLET PO SCH ×4 (08:31→20:06)
[2017-08-13] MEDS: MULTIVIT, IRON, MIN NO. 8, FA TABLET PO SCH (08:32)
[2017-08-13] MEDS: ASPIRIN 81 MG TAB.CHEW PO SCH (08:32)
[2017-08-13] MEDS: FINASTERIDE 5 MG TABLET PO SCH (08:33)
[2017-08-13] MEDS: DIVALPROEX SPRINKLE 125 MG CAP.SPRINK PO SCH ×4 (08:33→20:06)
[2017-08-13] MEDS: NEOMY/BACITRAC/POLYMI OINT 28.35 GM TUBE TOP SCH (08:35)
[2017-08-13] MEDS: Z GUARD REMEDY PASTE 57 GM TUBE TOP PRN (08:36)
[2017-08-13] MEDS: Z GUARD REMEDY PASTE 57 GM TUBE TOP SCH ×2 (09:00→20:31)
--- NOTE | 2017-08-13 09:47 | NUR ---
PRN Z guard given instead of the scheduled Z-guard
[2017-08-13] MEDS: LORAZEPAM 1 MG TABLET PO PRN (14:14)
[2017-08-13 15:36] VITALS: BP 121/57
--- NOTE | 2017-08-13 18:58 | NUR ---
Pt was noted to be active during the day and walking with his walker assisted and guided by sitter. Family was seen visiting. expressed concerns about bed hold for [facility]. Charge nurse informed and will be endorsed to director of casework on Tuesday. was concern about leg abrasion explained the situation and understands, information was obtained by charge nurse.
[2017-08-13 20:00] VITALS: BP 125/65
[2017-08-13] MEDS: DOXAZOSIN 2 MG TABLET PO SCH (20:06)
[2017-08-13] MEDS: ATORVASTATIN 40 MG TABLET PO SCH (20:06)
[2017-08-14 07:30] VITALS: BP_SYST 111; BP_SYST 142; BP_DIAS 65; BP_DIAS 70
[2017-08-14] MEDS: Z GUARD REMEDY PASTE 57 GM TUBE TOP SCH ×2 (09:00→20:11)
[2017-08-14] MEDS: NEOMY/BACITRAC/POLYMI OINT 28.35 GM TUBE TOP SCH (09:00)
[2017-08-14] MEDS: METFORMIN HCL 500 MG TABLET PO SCH ×2 (09:53→17:49)
[2017-08-14] MEDS: DIVALPROEX SPRINKLE 125 MG CAP.SPRINK PO SCH ×4 (09:53→20:10)
[2017-08-14] MEDS: ASPIRIN 81 MG TAB.CHEW PO SCH (09:54)
[2017-08-14] MEDS: FINASTERIDE 5 MG TABLET PO SCH (09:54)
[2017-08-14] MEDS: QUETIAPINE FUMARATE 25 MG TABLET PO SCH ×4 (09:54→20:09)
[2017-08-14] MEDS: MULTIVIT, IRON, MIN NO. 8, FA TABLET PO SCH (09:54)
[2017-08-14] MEDS: Z GUARD REMEDY PASTE 57 GM TUBE TOP PRN (10:03)
--- NOTE | 2017-08-14 11:45 | NUR ---
patient found down on floor o.t noted event , no bruising or cuts noted from event vital sign b/p 141/67 hr 95 . patient returned to madlayn chair with assist 1.1 sitter continued as ordered continued to provide safety and 1;1
[2017-08-14 15:37] VITALS: BP 139/90
--- NOTE | 2017-08-14 18:31 | NUR ---
patient has not c/o pain or discomfort since sliding too floor this am , up in day room and in room with family at visiting hour , patient still confused and disoriented 1;1 sitter at bedside
[2017-08-14] MEDS: ACETAMINOPHEN 325 MG TABLET PO PRN (18:51)
[2017-08-14 20:00] VITALS: BP 134/70
[2017-08-14] MEDS: ATORVASTATIN 40 MG TABLET PO SCH (20:11)
[2017-08-14] MEDS: DOXAZOSIN 2 MG TABLET PO SCH (20:11)
--- NOTE | 2017-08-15 06:29 | NUR ---
GPS: REMAIN CALM AND COOPERATIVE WITH MEDICATION AND CARE. SHOWERED THIS MORNING. ASSISTED WITH ADL'S DUE TO PATIENT IS INCONTINENT. TURN Q 2 HRS FOR SKIN SAFETY. REMAIN ON 1:1 SITTER @ BEDSIDE FOR SAFETY. SLEPT 6:45 HRS THROUGH THE NIGHT. CONTINUE PLAN OF CARE.
[2017-08-15 07:30] VITALS: BP 133/60
[2017-08-15] MEDS: MULTIVIT, IRON, MIN NO. 8, FA TABLET PO SCH (08:49)
[2017-08-15] MEDS: METFORMIN HCL 500 MG TABLET PO SCH ×2 (08:49→17:16)
[2017-08-15] MEDS: ASPIRIN 81 MG TAB.CHEW PO SCH (08:49)
[2017-08-15] MEDS: FINASTERIDE 5 MG TABLET PO SCH (08:50)
[2017-08-15] MEDS: DIVALPROEX SPRINKLE 125 MG CAP.SPRINK PO SCH ×4 (08:50→20:10)
[2017-08-15] MEDS: Z GUARD REMEDY PASTE 57 GM TUBE TOP SCH ×2 (08:50→20:12)
[2017-08-15] MEDS: QUETIAPINE FUMARATE 25 MG TABLET PO SCH ×4 (08:50→20:11)
[2017-08-15] MEDS: NEOMY/BACITRAC/POLYMI OINT 28.35 GM TUBE TOP SCH (09:01)
[2017-08-15] MEDS: ACETAMINOPHEN 325 MG TABLET PO PRN ×2 (09:58→20:01)
[2017-08-15 16:23] VITALS: BP 136/83
[2017-08-15 19:45] VITALS: BP 153/79
[2017-08-15] MEDS: LORAZEPAM 1 MG TABLET PO PRN (20:00)
[2017-08-15] MEDS: ATORVASTATIN 40 MG TABLET PO SCH (20:10)
[2017-08-15] MEDS: DOXAZOSIN 2 MG TABLET PO SCH (20:11)
[2017-08-16] MEDS: TEMAZEPAM 7.5 MG CAPSULE PO PRN (01:37)
[2017-08-16] MEDS: Z GUARD REMEDY PASTE 57 GM TUBE TOP PRN (01:44)
--- NOTE | 2017-08-16 07:00 | NUR ---
GPS: Pt. starting to get agitated and combative during care now. Re-directed by staff. Explained importance of having his diaper changed. Pt.is confused,disoriented with poor insight to present situation. 1:1 sitter at bedside for safety. Will monitor for further escalation of behavior. Endorsed to incoming nurse.
[2017-08-16] MEDS: LORAZEPAM 1 MG TABLET PO PRN (07:56)
[2017-08-16] MEDS: ASPIRIN 81 MG TAB.CHEW PO SCH (08:48)
[2017-08-16] MEDS: MULTIVIT, IRON, MIN NO. 8, FA TABLET PO SCH (08:48)
[2017-08-16] MEDS: METFORMIN HCL 500 MG TABLET PO SCH ×2 (08:48→17:27)
[2017-08-16] MEDS: Z GUARD REMEDY PASTE 57 GM TUBE TOP SCH ×2 (08:49→22:04)
[2017-08-16] MEDS: DIVALPROEX SPRINKLE 125 MG CAP.SPRINK PO SCH ×4 (08:49→21:38)
[2017-08-16] MEDS: QUETIAPINE FUMARATE 25 MG TABLET PO SCH ×4 (08:49→21:37)
[2017-08-16] MEDS: FINASTERIDE 5 MG TABLET PO SCH (08:49)
[2017-08-16] MEDS: NEOMY/BACITRAC/POLYMI OINT 28.35 GM TUBE TOP SCH (08:50)
[2017-08-16 11:12] VITALS: BP 127/69
--- NOTE | 2017-08-16 11:50 | NUR ---
GPS/RN- Sitter Patient continues to anxious, restless confused and disorganized unsteady gait. assisted with adls, attempts to ambulate without regard for own safety. fall risk, recent fall. continue sitter 1:1
--- NOTE | 2017-08-16 12:31 | NUR ---
WOUND CARE CONSULT: PT PRESENTS WITH INCONTINENCE ASSOCIATED SKIN DAMAGE TO GLUTEAL CREASE AREA AND RT LATERAL LOWER LEG WOUND. RECOMMENDATIONS MADE FOR WOUND CARE AND SKIN PROTECTION. RECOMMEND SURGICAL CONSULT FOR LEG WOUND. DISCUSSED ALL RECOMMENDATIONS WITH NURSING STAFF. WILL SEE PRN. CHAIDEZ AT BEDSIDE. PT INCONTINENT, UNCOOPERATIVE, AGITATED AND COMBATIVE AT TIMES. IN AGREEMENT WITH PLAN OF CARE. Addendum: 08/16/17 at 1235 by ELIZABETH FLORES RN Amended: Links added. Addendum: 08/16/17 at 1245 by ELIZABETH FLORES RN RT DORSALIS PEDIS AND POSTERIOR TIBIAL PULSES PALPABLE. EDEMA NOTED. LEG ELEVATED ON PILLOW.
[2017-08-16 16:11] VITALS: BP 144/105
[2017-08-16 20:46] VITALS: BP 167/92
[2017-08-16] MEDS: MUPIROCIN 2% OINT 22 GM TUBE TP SCH (21:00)
[2017-08-16] MEDS: DOXAZOSIN 2 MG TABLET PO SCH (21:37)
[2017-08-16] MEDS: ATORVASTATIN 40 MG TABLET PO SCH (21:37)
--- NOTE | 2017-08-16 22:00 | NUR ---
received to care, lying in bed, agitated and combative, at times. compliant with oral medications, but refused wound care. attempted to kick staff when attempted. as of 2199, he remains awake intermittently. 1:1 sitter at side for safety. will continue to monitor closely.
[2017-08-17] MEDS: TEMAZEPAM 7.5 MG CAPSULE PO PRN (00:31)
--- NOTE | 2017-08-17 00:31 | NUR ---
remains awake, and restless. PRN restoril was given, at this time.
--- NOTE | 2017-08-17 01:15 | NUR ---
appears to be asleep. no distress noted.
--- NOTE | 2017-08-17 06:00 | NUR ---
slept 30 minutes total. remains calm. sitter at bedside.
--- NOTE | 2017-08-17 07:09 | NUR ---
FURNACE TAPPER RIGHT LOWER LEG TREATMENT ORDERS CLARIFIED WITH DR TRUJILLO. DISCUSSED WITH NURSING STAFF.
[2017-08-17 07:30] VITALS: BP 154/89
[2017-08-17 07:48] LABS: BASOPHILS % (AUTO) 0.2 % (0.0-2.0); EOSINOPHILS % (AUTO) 0.4 % (0.0-7.0); HEMATOCRIT 32.1 % (36.7-47.1); LYMPHOCYTES # (AUTO) 0.7 K/uL (20.0-40.0); LYMPHOCYTES % (AUTO) 11.2 % (20.5-51.5); MEAN CORPUSCULAR HGB CONC 34 g/dL (32.5-36.3); MONOCYTES # (AUTO) 0.6 K/uL (2.0-10.0); MONOCYTES % (AUTO) 9.7 % (0.0-11.0); NEUTROPHILS # (AUTO) 4.6 K/uL (1.8-8.9); NEUTROPHILS % (AUTO) 78.5 % (38.5-71.5); PLATELET COUNT (AUTO) 130 K/uL (152-348); RED BLOOD CELL COUNT(AUTO) 3.57 MIL/uL (4.06-5.63); WHITE BLOOD COUNT (AUTO) 5.8 K/uL (3.6-10.2)
[2017-08-17] MEDS: METFORMIN HCL 500 MG TABLET PO SCH ×2 (08:00→17:58)
[2017-08-17] MEDS: ASPIRIN 81 MG TAB.CHEW PO SCH (09:00)
[2017-08-17] MEDS: FINASTERIDE 5 MG TABLET PO SCH (09:00)
[2017-08-17] MEDS: QUETIAPINE FUMARATE 25 MG TABLET PO SCH ×4 (09:00→21:00)
[2017-08-17] MEDS: MULTIVIT, IRON, MIN NO. 8, FA TABLET PO SCH (09:00)
[2017-08-17] MEDS ORDERED: SODIUM HYPOCHLORITE 0.125% 473 ML BOTTLE TP SCH ×2 (09:00→21:00)
[2017-08-17] MEDS: DIVALPROEX SPRINKLE 125 MG CAP.SPRINK PO SCH ×4 (09:00→21:00)
[2017-08-17] MEDS: Z GUARD REMEDY PASTE 57 GM TUBE TOP SCH ×2 (12:00→21:40)
[2017-08-17] MEDS: MUPIROCIN 2% OINT 22 GM TUBE TP SCH ×2 (12:00→21:39)
[2017-08-17] MEDS: ACETAMINOPHEN 325 MG TABLET PO PRN (15:12)
[2017-08-17 15:52] VITALS: BP 123/79
--- NOTE | 2017-08-17 18:25 | NUR ---
Dr. Freeman was in the unit to see patient and do the debridement of right lower leg. Patient able to tolerate the procedure well. Medicated for pain. Family at bedside. New orders for Po Augmentin noted and carried out. Wound dressing in place. Will continue to monitor
[2017-08-17] MEDS ORDERED: LIDOCAINE 2% (UROJET) 10 ML JELLY MM ONE (18:30)
[2017-08-17] MEDS ORDERED: HYDROCODONE/APAP 5-325MG TABLET PO PRN (18:45)
[2017-08-17] MEDS: HYDROCODONE/APAP 5-325MG TABLET PO ONE ×2 (18:48→18:52)
--- NOTE | 2017-08-17 20:00 | NUR ---
RECEIVED PATIENT IN HIS ROOM IN BED, HE IS NOTED AWAKE A/O X 1. HE CONTINUE ON 1:1 SUPERVISION FOR FALL PRECAUTION. V/S STABLE AT THIS TIME. B/P 112/72, PULSE 96BPM, RESPIRATION 18BREATHS/MIN ORAL TEMP 97.4 AND O2SAT 98%. NO AGGRESSIVE COMBATIVE BX NOTED AT THIS TIME. SAFETY WAS EMPHASIS. WILL CONTINUE TO MONITOR.
[2017-08-17 20:15] VITALS: BP 112/72
[2017-08-17 21:00] VITALS: BP 112/72
[2017-08-17] MEDS ORDERED: [UNRECOGNIZED DRUG - OTHER] PO SCH (21:00)
[2017-08-17] MEDS: ATORVASTATIN 40 MG TABLET PO SCH (21:00)
[2017-08-17] MEDS ORDERED: AMOXICILLIN-CLAVUL 500-125MG TABLET PO SCH (21:00)
[2017-08-17] MEDS: DOXAZOSIN 2 MG TABLET PO SCH (21:00)
--- NOTE | 2017-08-17 22:50 | NUR ---
PATIENT NOTED COUGHING, V/S STABLE AT THIS TIME. PATIENT IN NO DISTRESS. CHEST X RAY WAS ORDERED. WILL CONTINUE TO MONITOR.
--- NOTE | 2017-08-17 23:00 | NUR ---
PATIENT REFUSED ALL HER QHS MEDICATIONS. MULTIPLE REDIRECTION GIVEN, HOWEVER INEFFECTIVE. WOUND RT LOWER LEG WAS CLEANED AND REDRESSED. WILL CONTINUE TO MONITOR.
--- NOTE | 2017-08-18 01:00 | NUR ---
AT APPROX 0045 PATIENT WAS NOTED BREATHING FAST, APPROX 20 BREATHS PER MINUETS. CHEST X RAY WAS ORDERED STAT. V/S 119/56MMHG, PULSE 79BPM, ORAL TEMP 97.6F AND O2SAT 82%. PATIENT IS DNR. NURSE BUSINESS ANALYST CONSULTANT WAS THEN NOTIFY, SHE IMMEDIATELY CAME TO THE UNIT. OXYGEN AT 10L VIA FACE MASK (VENTURI MASK) WAS GIVEN. V/S AT APPROX 0055 WERE RETAKEN B/P 105/56MMHG, PULSE 72BPM, O2 SAT 38% RESPIRATION 24BREATHS/MIN. THEN AT APPROX 0057 PATIENT . TIME OF WAS CALLED AT 0057. Addendum: 08/18/17 at 0241 by JASIEL NOLAND RN PLEASE DISREGARD, INCORRECT INFORMATION.
--- NOTE | 2017-08-18 03:20 | NUR ---
AT APPROXIMATELY 0045, NURSING STAFF NOTED LABORED AND RAPID BREATHING. VITAL SIGNS WERE IMMEDIATELY TAKEN: BP OF 119/56, 79 HR, ORAL TEMP OF 97.6 F, 02 SAT OF 82% AND RAPIDLY DECLINING. NURSE TREE AND SHRUB WORKER WAS THEN IMMEDIATELY NOTIFIED. WHILE ON THE PHONE WITH NURSE TREE AND SHRUB WORKER, Pt WAS NOTED NOT BREATHING AND WITHOUT A PULSE. CPR AND OTHER LIFE SAVING MEASURES WERE NOT STARTED SINCE Pt IS ON A DO NOT RESUSCITATE CODE STATUS. NURSE TREE AND SHRUB WORKER IMMEDIATELY CAME TO THE UNIT TO ASSESS THE SITUATION. Pt WAS UNRESPONSIVE, NOT BREATHING, AND WITHOUT A PULSE. UNABLE TO RECORD BLOOD PRESSURE. ATTEMPTED TO ADMINISTER 10L OF OXYGEN VIA NON-REBREATHER MASK, NO IMPROVEMENT IN CONDITION. Pt STILL DE-SATURATING, NOT BREATHING, AND PULSELESS. TIME OF WAS CALLED AT 0057. ON-CALL RESIDENTIAL RECYCLE DRIVER, DR. FATIMA, WAS NOTIFIED OF SITUATION. NURSE WILL ALSO CALL AND NOTIFY THE PSYCHIATRIST, DR. FALCON. FAMILY WAS NOTIFIED OF AND GIVEN INFORMATION REGARDING HOSPITAL PROTOCOL. FAMILY REQUESTED TO VISIT AND SEE THE BODY OF Pt. POST-MORTEM CARE WAS DONE BY NURSING STAFF, TRANSFERRED TO AN EMPTY ROOM FOR FAMILY PRIVACY DURING VISIT. FAMILY IS CURRENTLY IN THE ROOM, NURSE WILL ASK FOR THEIR WISHES AT A MORE APPROPRIATE TIME.
--- NOTE | 2017-08-18 04:21 | NUR ---
NURSING: AT APPROXIMATELY 0045, CHANGE OF CONDITION WAS REPORTED FOR ONE OF THE PATIENTS IN THE UNIT. IMMEDIATELY CAME TO THE UNIT TO ASSESS THE PATIENT. UPON ARRIVAL, PATIENT WAS NOT AROUSABLE, PULSELESS, AND WAS NOT ABLE TO OBTAIN VITAL SIGNS. PATIENT APNEIC FOR 5 MINUTES, PUPILS FIXED AND DILATED, NO AUDIBLE HEART TONES, BREATH SOUNDS FOR 1 MINUTE, NO PALPABLE PULSES FOR 1 MINUTE AND NO CORNEAL REFLEXES. PATIENT PRONOUNCED AT 0057. PHYSICIAN NOTIFIED.
--- NOTE | 2017-08-18 04:30 | NUR ---
ALL HIS BELONGINGS WERE GIVEN TO EARLE AMATO.
== END 2017-08-18 05:00 | disposition expired | DRG 876 ==
LOC: ER 18:30 → GPS 20:27
PROVIDERS: ADMIT Psychiatry & Neurology Psychiatry; ATTEND Internal Medicine
PROC: 0JBQ0ZZ Excision of Right Foot Subcutaneous Tissue and Fascia, Open Approach (ICD-10-PCS; principal; 2017-08-17)
DX: F39 Unspecified mood [affective] disorder (principal); F02.81 Dementia in other diseases classified elsewhere, unspecified severity, with behavioral disturbance; N17.9 Acute kidney failure, unspecified; E11.65 Type 2 diabetes mellitus with hyperglycemia; L03.115 Cellulitis of right lower limb; L97.318 Non-pressure chronic ulcer of right ankle with other specified severity; Z66 Do not resuscitate; F29 Unspecified psychosis not due to a substance or known physiological condition; E11.9 Type 2 diabetes mellitus without complications; G30.9 Alzheimer's disease, unspecified; Z86.59 Personal history of other mental and behavioral disorders; G40.909 Epilepsy, unspecified, not intractable, without status epilepticus; Z79.84 Long term (current) use of oral hypoglycemic drugs; Z79.899 Other long term (current) drug therapy; D64.9 Anemia, unspecified; D69.6 Thrombocytopenia, unspecified; E78.5 Hyperlipidemia, unspecified; K80.20 Calculus of gallbladder without cholecystitis without obstruction; N40.0 Benign prostatic hyperplasia without lower urinary tract symptoms; E11.622 Type 2 diabetes mellitus with other skin ulcer; F41.9 Anxiety disorder, unspecified; Z79.82 Long term (current) use of aspirin; M19.011 Primary osteoarthritis, right shoulder; R16.0 Hepatomegaly, not elsewhere classified; W18.30XA Fall on same level, unspecified, initial encounter; Y92.239 Unspecified place in hospital as the place of occurrence of the external cause; G47.00 Insomnia, unspecified; D72.820 Lymphocytosis (symptomatic)
CPT/HCPCS: 36415; 70030-TC; 70450; 71045; 73030; 73090; 73110; 73501; 73551; 73610; 73630; 76700; 76770; 80164; 82746; 82747; 83550; 83615; 83735; 83970; 84100; 84153; 84155; 84165; 84300; 84443; 84550; 85014; 85025; 85520; 85651; 85730; 86592; 87070; 87340; 93005; 97116; 97530; A4663; G0480; J3490